=== PATIENT | male | born 1995 | race African-American/Black ===

== ENCOUNTER 2018-05-24 12:36 | Emergency (ER) | payer MEDICAID ==
[~2018-05-24] VITALS: Ht 180.3 cm; Wt 80.0 kg
[2018-05-24] MEDS ORDERED: IBUPROFEN 600MG TABLET PO STA (14:51)
[2018-05-24 16:17] VITALS: BP 127/71
== END 2018-05-24 16:20 | disposition home or self-care (01) ==
LOC: ER 13:33
DX: S09.8XXA Other specified injuries of head, initial encounter (principal); W01.0XXA Fall on same level from slipping, tripping and stumbling without subsequent striking against object, initial encounter; Y93.67 Activity, basketball; Y92.9 Unspecified place or not applicable
CPT/HCPCS: 99284